=== PATIENT | female | born 1995 | race Caucasian/White ===

== ENCOUNTER 2016-09-07 20:13 | Outpatient (CLI) | payer OTHER | END 2016-09-07 21:30 | disposition home or self-care (01) | LOC: GENOP 20:13 | DX: O26.893 Other specified pregnancy related conditions, third trimester (principal); R10.9 Unspecified abdominal pain; Z3A.37 37 weeks gestation of pregnancy | CPT/HCPCS: 81001; G0463 ==

== ENCOUNTER 2016-09-17 17:38 | Outpatient (CLI) | payer OTHER | END 2016-09-17 19:04 | disposition home or self-care (01) | LOC: GENOP 17:38 | DX: O42.92 Full-term premature rupture of membranes, unspecified as to length of time between rupture and onset of labor (principal); Z3A.39 39 weeks gestation of pregnancy | CPT/HCPCS: 81001; 83518; G0463 ==

== ENCOUNTER 2016-09-20 05:38 | Inpatient (IN) | payer OTHER ==
[2016-09-20 06:32] LABS: RED BLOOD COUNT 3.73 M/UL (4.00-5.10)
[2016-09-21 03:23] LABS: HEMOGLOBIN 9.8 gm/dl (12.3-15.3)
[2016-09-22] MEDS ORDERED: COLACE 100MG C100 MG PO (13:16)
== END 2016-09-22 12:44 | disposition home or self-care (01) | DRG 775 ==
LOC: OB 05:38
PROVIDERS: Obstetrics & Gynecology; ADMIT Obstetrics & Gynecology
PROC: 10H073Z Insertion of Monitoring Electrode into Products of Conception, Via Natural or Artificial Opening (ICD-10-PCS; principal; 2016-09-20)
PROC: 10907ZC Drainage of Amniotic Fluid, Therapeutic from Products of Conception, Via Natural or Artificial Opening (ICD-10-PCS; principal; 2016-09-20)
PROC: 4A1H7CZ Monitoring of Products of Conception, Cardiac Rate, Via Natural or Artificial Opening (ICD-10-PCS; principal; 2016-09-20)
PROC: 3E033VJ Introduction of Other Hormone into Peripheral Vein, Percutaneous Approach (ICD-10-PCS; principal; 2016-09-20)
PROC: 4A1J74Z Monitoring of Products of Conception, Nervous Electrical Activity, Via Natural or Artificial Opening (ICD-10-PCS; principal; 2016-09-20)
PROC: 10H07YZ Insertion of Other Device into Products of Conception, Via Natural or Artificial Opening (ICD-10-PCS; principal; 2016-09-20)
PROC: 0UQMXZZ Repair Vulva, External Approach (ICD-10-PCS; 2016-09-20)
PROC: 0KQM0ZZ Repair Perineum Muscle, Open Approach (ICD-10-PCS; 2016-09-20)
PROC: 10E0XZZ Delivery of Products of Conception, External Approach (ICD-10-PCS; 2016-09-20)
PROC: 3E0234Z Introduction of Serum, Toxoid and Vaccine into Muscle, Percutaneous Approach (ICD-10-PCS; 2016-09-21)
DX: O99.354 Diseases of the nervous system complicating childbirth (principal); G40.909 Epilepsy, unspecified, not intractable, without status epilepticus; O70.1 Second degree perineal laceration during delivery; Z3A.39 39 weeks gestation of pregnancy; Z37.0 Single live birth; M62.830 Muscle spasm of back; M54.9 Dorsalgia, unspecified; Z87.440 Personal history of urinary (tract) infections; Z83.49 Family history of other endocrine, nutritional and metabolic diseases; Z82.49 Family history of ischemic heart disease and other diseases of the circulatory system; Z23 Encounter for immunization
CPT/HCPCS: 36415; 51702; 81001; 82800; 83518; 85014; 85018; 85025; 90707; 90715; G0463; J2060; J2405; J2590; J3010; J7120

== ENCOUNTER → 2020-08-30 | Outpatient (CLI) | payer OTHER ==
[~2020-08-30] MED LIST: BACTRIM DS TAB1 EACH PO; COLACE 100MG C100 MG PO; CYCLOBENZAPRINE5 MG PO; FOLIC ACID 1 MG1 MG PO; IBUPROFEN800 MG PO; LAMICTAL XR200 MG PO; LAMOTRIGINE150 MG PO; NORCO 5-325 TA1 EACH PO; TROKENDI XR200 MG PO; ZOFRAN ODT 4 MG4 MG PO
== END ==
LOC: KOH-I 09:54
DX: R05 Cough (principal)
CPT/HCPCS: 71046

== ENCOUNTER 2020-11-21 11:48 | Emergency (ER) | payer OTHER ==
[~2020-11-21 11:48] MED LIST changes: -ZOFRAN ODT 4 MG4 MG PO
[2020-11-21 12:52] LABS: HEMOGLOBIN 14.4 gm/dl (12.3-15.3); RED BLOOD COUNT 4.44 M/UL (4.00-5.10); WHITE BLOOD COUNT 15.1 K/UL (4.5-11.0)
[2020-11-21 13:16] LABS: BUN/CREATININE RATIO 15 (0-10)
[2020-11-21] MEDS ORDERED: ZOFRAN ODT 4 MG4 MG PO (15:48)
== END 2020-11-21 16:26 | disposition home or self-care (01) ==
LOC: ER1 11:48
PROVIDERS: Physician Assistant Medical
DX: G40.909 Epilepsy, unspecified, not intractable, without status epilepticus (principal); S00.81XA Abrasion of other part of head, initial encounter; W22.8XXA Striking against or struck by other objects, initial encounter; Z79.899 Other long term (current) drug therapy
CPT/HCPCS: 70450; 70486; 71046; 80053; 84703; 85025; 96374; 99284; J2405

== ENCOUNTER 2021-03-20 08:20 | Emergency (ER) | payer OTHER ==
[~2021-03-20 08:20] MED LIST changes: +ZOFRAN ODT 4 MG4 MG PO
== END 2021-03-20 10:43 | disposition home or self-care (01) ==
LOC: ER1 08:20
DX: S09.90XA Unspecified injury of head, initial encounter (principal); G40.909 Epilepsy, unspecified, not intractable, without status epilepticus; Z91.14 Patient's other noncompliance with medication regimen; Z79.899 Other long term (current) drug therapy
CPT/HCPCS: 81001; 84703; 99284

== ENCOUNTER 2021-04-22 10:47 | Emergency (ER) | payer OTHER ==
[2021-04-22] MEDS ORDERED: LAMOTRIGINE150 MG PO (11:56)
[2021-04-22] MEDS ORDERED: TROKENDI XR200 MG PO (11:56)
== END 2021-04-22 12:00 | disposition left against medical advice (07) ==
LOC: ER1 10:47
DX: G40.909 Epilepsy, unspecified, not intractable, without status epilepticus (principal); S09.90XA Unspecified injury of head, initial encounter; J34.89 Other specified disorders of nose and nasal sinuses
CPT/HCPCS: 99282

== ENCOUNTER 2021-04-22 17:41 | Emergency (ER) | payer OTHER ==
[2021-04-22 18:55] LABS: HEMOGLOBIN 14.9 gm/dl (12.3-15.3); RED BLOOD COUNT 4.61 M/UL (4.00-5.10); WHITE BLOOD COUNT 17.7 K/UL (4.5-11.0)
[2021-04-22 19:11] LABS: BUN/CREATININE RATIO 7 (0-10)
== END 2021-04-23 10:25 | disposition short-term general hospital (02) ==
LOC: ER1 17:41
PROVIDERS: Emergency Medicine; Family Medicine
DX: G40.909 Epilepsy, unspecified, not intractable, without status epilepticus (principal); Z20.822 Contact with and (suspected) exposure to COVID-19
CPT/HCPCS: 36415; 70450; 71045; 80053; 80307; 81001; 82962; 83605; 84703; 85025; 96374; 96375; 96376; 99285; J1953; J2060; J2270; J2405; U0002

== ENCOUNTER 2021-10-19 11:24 | Emergency (ER) | payer OTHER ==
[2021-10-19 11:53] LABS: RED BLOOD COUNT 4.24 M/UL (4.00-5.10); WHITE BLOOD COUNT 8.2 K/UL (4.5-11.0)
[2021-10-19 12:17] LABS: BUN/CREATININE RATIO 7 (0-10)
== END 2021-10-19 14:20 | disposition home or self-care (01) ==
LOC: ER1 11:24
PROVIDERS: Physician Assistant
DX: G40.909 Epilepsy, unspecified, not intractable, without status epilepticus (principal)
CPT/HCPCS: 80053; 81001; 82550; 82553; 84484; 85025; 87086; 93005; 99284